=== PATIENT | male | born 1980 | race Caucasian/White ===

== ENCOUNTER 2018-08-04 13:25 | Emergency (ER) | payer BC, MEDICAID ==
[~2018-08-04] VITALS: Wt 79.7 kg
[~2018-08-04 13:25] MED LIST: CEPH-443 PO; CETI10CA PO; ELIM TOP; FL.05O60 TOP; PRED20TA PO
[2018-08-04 13:37] VITALS: BP 128/58; PULSE 69; RESP 20
--- NOTE | 2018-08-04 13:54 | ERD ---
ER Documentation Chief Complaint Chief Complaint CP ongoing for several weeks; R eyelid redness/swelling today HPI 38-year-old male, previously healthy, presents the emergency department, c omplaining of more than 6 weeks with intermittent episodes of sharp chest pain, worse in the left side, occasionally, lasting more than 5 hours. The symptoms are not associated with palpitations, diaphoresis or dizziness. He is also complaining of 2 days with right upper eyelid edema, erythema and yellowish discharge. He denies blurred vision, no headache, no fever or chills. ROS All systems reviewed and are negative except as per history of present illness. Medications Home Meds Active Scripts Dexamethasone* Ophth (Dexamethasone* Ophth) 0.1%-5 Ml Drops, 1 DROP LEFT EYE TID for 7 Days, #1 BOTTLE Prov:SHELBY ORDOÑEZ MD 08/04/18 Erythromycin Base (Erythromycin) 1 Gm Oint...g., 1 APPLIC LEFT EYE QID for 7 Days Prov:SHELBY ORDOÑEZ MD 08/04/18 Fluocinonide* (Lidex* Oint) 60 Gm Oint, 1 APPLIC TOP BID for 10 Days, EA Prov:EJ SALCEDO MD 03/09/16 Permethrin* (Elimite*) 5% Cr, 1 APPLIC TOP ONCE for 1 Day, TUB Prov:EJ SALCEDO MD 03/09/16 Cephalexin* (Keflex*) 500 Mg Capsule, 500 MG PO QID for 5 Days, CAP Prov:GLORIA SOTO 02/25/16 Prednisone* (Prednisone*) 20 Mg Tab, 60 MG PO DAILY for 5 Days, TAB Prov:GLORIA SOTO 02/25/16 Prednisone* (Prednisone*) 20 Mg Tab, 40 MG PO DAILY for 4 Days, TAB Prov:EJ SALCEDO MD 10/09/15 Cetirizine Hcl* (Zyrtec*) 10 Mg Capsule, 10 MG PO DAILY, #30 TAB.CHEW Prov:EJ SALCEDO MD 10/09/15 Allergies Allergies: Coded Allergies: No Known Allergy (Unverified , 02/25/16) PMhx/Soc History of Surgery: Yes (ORAL) Anesthesia Reaction: No Hx Neurological Disorder: No Hx Respiratory Disorders: No Hx Cardiac Disorders: No Hx Psychiatric Problems: No Hx Miscellaneous Medical Probl: No Hx Alcohol Use: Yes (OOC) Hx Substance Use: No Hx Tobacco Use: No Physical Exam Vitals Vital Signs Date Temp Pulse Resp B/P (MAP) Pulse Ox O2 O2 Flow FiO2 Time Delivery Rate 08/04/18 97.1 69 20 128/58 96 13:37 (81) Physical Exam Patient alert, oriented, vital signs stable. HEAD: Normocephalic, atraumatic. EYES: PERRLA, EOMI, Sclera and conjunctiva appear normal; right upper eyelid with edema and erythema. Anterior chamber clear. NOSE: Clear and patent nostrils. EARS: Canals clear, tympanic membranes WNL. MOUTH: normal lips and tongue, no oral lesions. THROAT: Normal oropharynx, no tonsillar exudates. NECK: Supple, No lymphadenopathy. Full ROM without pain or tenderness. HEART: RRR, no rubs, murmurs, clicks or gallops. LUNGS: Clear to auscultation. ABDOMEN: Soft, non-tender without masses or hepatosplenomegaly. EXTREMITIES: No edema bilaterally. BACK: Full ROM, no deformity, normal back exam NEURO: Cranial nerves grossly intact, no motor or sensory deficit SKIN: No rashes, no petechia. Results 24 hrs EKG read by me: Rate/Rhythm: Regular rate and rhythm at a rate of 64 Intervals: Normal No acute ST changes. No T wave inversion Impression: No evidence of acute ischemia or arrhythmia Procedures/MDM Vital signs stable. Differential diagnosis include but not limited to: URI, PNA, chostochondritis, GERD, musculoskeletal injury, less likely PE, pericarditis, endocarditis. Pertinent Data: 12 Lead ECG: Sinus rhythm, no ST changes, normal T wave, normal intervals Physical examination and clinical presentation consistent most likely with atypical chest pain, the patient has also blepharitis of the left eye. During the ED course the patient remained stable, no new complaints. Results and clinical impression discussed with patient who agrees with management. The patient is stable to be treated outpatient and will be discharged home; some side effects of prescribed medications (headache, rash, nausea, vomiting, diarrhea, drowsiness, habituation, bleeding, hypertension, interactions with other medications) were reviewed. The patient was informed that the evaluation in the emergency department has been done to rule out an acute emergency, therefore, chronic conditions like malignancy or autoimmune diseases have not been evaluated; therefore, the patient was instructed to follow up with the primary care provider in the next 48h. If symptoms persist, worsen or new symptoms develop, then patient should return to the ED immediately. Instructions explained and given directly by me to the patient with acknowledgment and demonstrated understanding. Disclaimer: Inadvertent spelling and grammatical errors are likely due to EHR/dictation software use and do not reflect on the overall quality of patient care. Also, please note that the electronic time recorded on this note does not necessarily reflect the actual time of the patient encounter. Departure Diagnosis: Primary Impression: Chest pain Additional Impression: Blepharitis, left eye Condition: Stable Additional Instructions: Thank you very much for allowing us to participate in your care. Your health and safety is our top priority at [facility]. The evaluation in the emergency department has been done to rule out an acute emergency, therefore, chronic conditions like malignancy or other diseases have not been evaluated; therefore, you need to follow up with a primary care provider in the next 48h. If symptoms persist, worsen or new symptoms develop, then patient should return to the ED immediately. Call your primary care doctor TOMORROW for an appointment during the next 2-4 days and bring all the information provided. Have prescriptions filled and follow precisely the directions on the label. If the symptoms get worse and your provider is unavailable, return to the Emergency Department immediately. SHELBY ORDOÑEZ MD Aug 04, 2018 13:54
[2018-08-04] MEDS ORDERED: DEXA5DRO11 LEFT EYE (13:55)
[2018-08-04] MEDS ORDERED: ERYT1OIN6 LEFT EYE (13:55)
== END 2018-08-04 14:25 | disposition home or self-care (01) ==
LOC: FTE 13:25 → E/R 14:25
DX: R07.9 Chest pain, unspecified (principal); H01.001 Unspecified blepharitis right upper eyelid
CPT/HCPCS: 93005